=== PATIENT | female | born 1985 | race American Indian/Alaskan Native ===

== ENCOUNTER 2019-02-23 07:43 | Emergency (ER) | payer OTHER ==
[2019-02-23] MEDS ORDERED: DUONEB *Not for PRN Use IH ONE (08:15)
[2019-02-23] MEDS ORDERED: SOLU-Medrol IV ONE (08:16)
[2019-02-23] MEDS ORDERED: NACL 0.9% 1000 ML 1,000 ML IV ONE (08:16)
--- NOTE | 2019-02-23 08:17 | Emergency Department Report ---
Minor Respiratory - HPI Chief Complaint: Upper Respiratory Infection Stated Complaint: COLD/FLU SX Time Seen by Provider: 02/23/19 08:08 Duration: 5 Days Pain Location: Chest Severity: moderate Minor Respiratory: Yes Able to Tolerate Fluids, Yes Cough, Yes Shortness of Breath, No Rhinorrhea, No Sore Throat, No Ear Pain, No Sick Contacts, No Hemoptysis, No Chest Pain, No Fever Other History: Patient is a 33-year-old comes to emergency room complaining of exacerbation of her asthma. Patient is out of her asthma medicines. She denies fever. She is coughing. She was unable to continue with her primary care doctor. She denies taking any routine medications at this time. Denies chest pain. No increased work of breathing on exam. ABCs intact vital signs stable. Afebrile ED Review of Systems ROS: Stated complaint: COLD/FLU SX Other details as noted in HPI Comment: All other systems reviewed and negative ED Past Medical Hx - Past Medical History Hx Hypertension: No Hx CVA: No Hx Heart Attack/AMI: No Hx Congestive Heart Failure: No Hx Diabetes: No Hx Deep Vein Thrombosis: No Hx Pulmonary Embolism: No Hx GERD: No Hx Liver Disease: No Hx Renal Disease: No Hx Sickle Cell Disease: No Hx Arthritis: No Hx Headaches / Migraines: Yes Hx Seizures: No Hx Kidney Stones: No Hx Psychiatric Treatment: No Hx Asthma: Yes (Controlled with Albuterol PRN) Hx COPD: No Hx Tuberculosis: No Hx Dementia: No Hx HIV: No - Surgical History Past Surgical History?: No Hx Coronary Stent: No Hx Open Heart Surgery: No Hx Pacemaker: No Hx Internal Defibrillator: No Hx Cholecystectomy: No Hx Appendectomy: No Hx Breast Surgery: No - Social History Smoking Status: Never Smoker Substance Use Type: None - Medications Home Medications: Home Medications Medication Instructions Recorded Confirmed Last Taken Type Ipratropium [place] 0.2 mg IH TID PRN #1 box 10/31/14 Unknown Rx Albuterol Sulfate [Albuterol 0.63%] 3 ml IH TID PRN #1 box 02/23/19 Unknown Rx Albuterol Sulfate [Proair 90 mcg IH QID PRN #1 aer.pow.ba 02/23/19 Unknown Rx Respiclick] Azithromycin [Zithromax Z-PETRA] 250 mg PO DAILY #6 tablet 05/29/19 Unknown Rx Cetirizine HCl [ZyrTEC] 10 mg PO DAILY #30 capsule 02/23/19 Unknown Rx Fluticasone [Flonase] 1 spray NS QDAY #1 bottle 02/23/19 Unknown Rx predniSONE [Deltasone] 20 mg PO DAILY #5 tablet 02/23/19 Unknown Rx Minor Respiratory Exam - Exam General: Vital signs noted. No distress. Alert and acting appropriately. WDWN patient in NAD VS per RN flow sheet Alert and oriented to person, place and time. S1-S2. No S3 or S4. No systolic or diastolic murmur. No JVD. No pitting edema. bilateral wheezing and rhonchi on admit. Abdomen soft nontender bowel sounds -4. Moves all extremities well. Mood and affect appropriate. HEENT: Yes Pharyngeal Erythema Ear: Neither TM Bulge, Neither TM Erythema, Neither EAC Pain, Neither EAC Discharge Neck: Yes Supple, No Adenopathy Lungs: Yes Good Air Exchange, Yes Wheezes Heart: No Regular Abdomen: No Tenderness Skin: No Rash, No Edema Neurologic: Alert and oriented, no deficits. Musculoskeletal: Unremarkable. ED Course Vital Signs 02/23/19 07:45 Temperature 98.1 F Pulse Rate 77 Respiratory 18 Rate Blood Pressure 137/54 O2 Sat by Pulse 97 Oximetry ED Medical Decision Making - Radiology Data Radiology results: report reviewed, image reviewed - Medical Decision Making RT treatment and medicated in ER reports feeling better afterward. In fact, talking on phone during re exam xray no infiltrate no fever no sob no cp ambulatory without sob will dc home with dc plan of care and PCP follow up Vital Signs 02/23/19 02/23/19 02/23/19 07:45 08:30 09:00 Temperature 98.1 F 98.2 F Pulse Rate 77 79 Pulse Rate [ 88 Bilateral] Pulse Rate [ 88 Throughout] Respiratory 18 18 Rate Respiratory 16 Rate [Bilateral ] Respiratory 16 Rate [ Throughout] Blood Pressure 137/54 Blood Pressure 122/65 [Right] O2 Sat by Pulse 97 Oximetry - Differential Diagnosis ro pna Critical care attestation.: If time is entered above; I have spent that time in minutes in the direct care of this critically ill patient, excluding procedure time. ED Disposition Clinical Impression: Asthma exacerbation, Bronchitis Disposition: DC-01 TO HOME OR SELFCARE Is pt being admited?: No Does the pt Need Aspirin: No Condition: Stable Instructions: Asthma (ED), Chronic Bronchitis (ED) Additional Instructions: DIET TOLERATED MEDS ORDERED TODAY IN ER FOLLOW INSTRUCTIONS ON THE BOTTLE FOLLOW UP PCP WITHIN 48 HOURS TO ENSURE YOU ARE GETTING BETTER ACTIVITY TOLERATED MOTRIN OR TYLENOL FOR PAIN OR FEVER RETURN TO THE ER FOR WORSENING SYMPTOMS NOT RELIEVED BY YOUR MEDICATIONS. Prescriptions: Albuterol Sulfate [Albuterol 0.63%] 3 ml IH TID PRN #1 box PRN Reason: Wheezing predniSONE [Deltasone] 20 mg PO DAILY #5 tablet Fluticasone [Flonase] 1 spray NS QDAY #1 bottle Albuterol Sulfate [Proair Respiclick] 90 mcg IH QID PRN #1 aer.pow.ba PRN Reason: Wheezing Azithromycin [Zithromax Z-PETRA] 250 mg PO DAILY #6 tablet Cetirizine HCl [ZyrTEC] 10 mg PO DAILY #30 capsule Referrals: LAURIE LANE MD [Primary Care Provider] - 3-5 Days Time of Disposition: 09:36
--- NOTE | 2019-02-23 09:04 | XRay Report ---
ROUTINE CHEST, TWO VIEWS: HISTORY: Cough. The trachea, heart, mediastinal contour, lung trujillo and bony thorax are unremarkable. IMPRESSION: Unremarkable chest x-ray.
[2019-02-23 09:05] VITALS: BP 122/65
== END 2019-02-23 10:01 | disposition home or self-care (01) ==
LOC: ED 07:43
DX: J45.901 Unspecified asthma with (acute) exacerbation (principal); Z91.018 Allergy to other foods
CPT/HCPCS: 71046; 94640; 96361; 96374; 99283; J2930; J7030

== ENCOUNTER 2019-05-01 11:56 | Emergency (ER) | payer OTHER ==
--- NOTE | 2019-05-01 12:08 | Event Note ---
ED Screening Note Date of service: 05/01/19 Time: 12:06 ED Screening Note: This is a 34 y.o. F. that presents to the ER with urinary urgency, frequency, and dysuria x 1 week. Took AZO for 3 days improved dysuria. Reports pelvic pressure. PMH Asthma LMP 04/11/2019, G0 This initial assessment/diagnostic orders/clinical plan/treatment(s) is/are subject to change based on patients health status, clinical progression and re- assessment by fellow clinical providers in the ED. Further treatment and workup at subsequent clinical providers discretion. Patient/guardian urged not to elope from the ED as their condition may be serious if not clinically assessed and managed. Initial orders include: UA, urine
[2019-05-01 12:10] VITALS: BP 146/72
[2019-05-01 13:18] LABS: Bilirubin,Urine NEG (Negative); Blood,Urine SM (Negative); Color,Urine Yellow (Yellow); Mucus,Urine FEW /HPF; Protein,Urine <15 mg/dL mg/dL (Negative); Urobilinogen,Urine < 2.0 mg/dL (<2.0)
[2019-05-01 13:20] LABS: WBC,Urine > 182.0 /HPF (0.0-6.0)
[2019-05-01 13:21] LABS: HCG Qualitative,Urine Negative (Negative)
[2019-05-01] MEDS ORDERED: ROCEPHIN IM ONE (13:57)
[2019-05-01] MEDS ORDERED: XYLOCAINE 1% MPF 5 mL INFILTRATI ONE (13:57)
--- NOTE | 2019-05-01 14:08 | Emergency Department Report ---
ED Female HPI - General Chief complaint: Abdominal Pain Stated complaint: LOWER ABD PAIN/POSS UTI Time Seen by Provider: 05/01/19 12:05 Source: patient Mode of arrival: Ambulatory Limitations: No Limitations - History of Present Illness Initial comments: This is a 34-year-old female nontoxic, well nourished in appearance, no acute signs of distress presents to the ED with c/o of dysuria, polyuria, and urinary frequency. Patient denies any vaginal discharge, bleeding, ulcers or lesions. Patient denies any back pain. Patient denies any pelvic or abdominal pain. Patient denies any nausea, vomiting, chest pain, shortness of breathe, fever, chills, headache, back pain, numbness, tingling, stiff neck. Patient denies any urinary symptoms. Patient denies any allergies or PMH. MD Complaint: dysuria Severity: mild Severity scale (0 -10): 3 Quality: burning Consistency: intermittent Improves with: none Worsens with: urination Are you Now?: No Associated Symptoms: dysuria. denies: vaginal discharge, vaginal bleeding, abdominal pain, nausea/vomiting, fever/chills, headaches, loss of appetite, hematuria, rash, seizure, shortness of breath, syncope, weakness - Related Data Previous Rx's Medication Instructions Recorded Last Taken Type Ipratropium [place] 0.2 mg IH TID PRN #1 box 10/31/14 Unknown Rx Albuterol Sulfate [Albuterol 0.63%] 3 ml IH TID PRN #1 box 02/23/19 Unknown Rx Albuterol Sulfate [Proair 90 mcg IH QID PRN #1 aer.pow.ba 02/23/19 Unknown Rx Respiclick] Azithromycin [Zithromax Z-PETRA] 250 mg PO DAILY #6 tablet 02/23/19 Unknown Rx Cetirizine HCl [ZyrTEC] 10 mg PO DAILY #30 capsule 02/23/19 Unknown Rx Fluticasone [Flonase] 1 spray NS QDAY #1 bottle 02/23/19 Unknown Rx predniSONE [Deltasone] 20 mg PO DAILY #5 tablet 02/23/19 Unknown Rx Sulfamethoxazole/Trimethoprim 1 each PO BID #14 tablet 05/01/19 Unknown Rx [Bactrim DS TAB] Allergies Allergy/AdvReac Type Severity Reaction Status Date / Time pine nut AdvReac Unknown Verified 02/23/19 07:45 ED Review of Systems ROS: Stated complaint: LOWER ABD PAIN/POSS UTI Other details as noted in HPI Constitutional: denies: chills, fever Eyes: denies: eye pain, eye discharge, vision change ENT: denies: ear pain, throat pain Respiratory: denies: cough, shortness of breath, wheezing Cardiovascular: denies: chest pain, palpitations Endocrine: no symptoms reported Gastrointestinal: denies: abdominal pain, nausea, diarrhea Genitourinary: urgency, dysuria, frequency. denies: hematuria, discharge Musculoskeletal: denies: back pain, joint swelling, arthralgia Skin: denies: rash, lesions Neurological: denies: headache, weakness, paresthesias Psychiatric: denies: anxiety, depression Hematological/Lymphatic: denies: easy bleeding, easy bruising ED Past Medical Hx - Past Medical History Hx Hypertension: No Hx CVA: No Hx Heart Attack/AMI: No Hx Congestive Heart Failure: No Hx Diabetes: No Hx Deep Vein Thrombosis: No Hx Pulmonary Embolism: No Hx GERD: No Hx Liver Disease: No Hx Renal Disease: No Hx Sickle Cell Disease: No Hx Arthritis: No Hx Headaches / Migraines: Yes Hx Seizures: No Hx Kidney Stones: No Hx Psychiatric Treatment: No Hx Asthma: Yes (Controlled with Albuterol PRN) Hx COPD: No Hx Tuberculosis: No Hx Dementia: No Hx HIV: No - Surgical History Hx Coronary Stent: No Hx Open Heart Surgery: No Hx Pacemaker: No Hx Internal Defibrillator: No Hx Cholecystectomy: No Hx Appendectomy: No Hx Breast Surgery: No - Social History Smoking Status: Never Smoker Substance Use Type: None - Medications Home Medications: Home Medications Medication Instructions Recorded Confirmed Last Taken Type Ipratropium [place] 0.2 mg IH TID PRN #1 box 10/31/14 Unknown Rx Albuterol Sulfate [Albuterol 0.63%] 3 ml IH TID PRN #1 box 02/23/19 Unknown Rx Albuterol Sulfate [Proair 90 mcg IH QID PRN #1 aer.pow.ba 02/23/19 Unknown Rx Respiclick] Azithromycin [Zithromax Z-PETRA] 250 mg PO DAILY #6 tablet 02/23/19 Unknown Rx Cetirizine HCl [ZyrTEC] 10 mg PO DAILY #30 capsule 02/23/19 Unknown Rx Fluticasone [Flonase] 1 spray NS QDAY #1 bottle 02/23/19 Unknown Rx predniSONE [Deltasone] 20 mg PO DAILY #5 tablet 02/23/19 Unknown Rx Sulfamethoxazole/Trimethoprim 1 each PO BID #14 tablet 05/01/19 Unknown Rx [Bactrim DS TAB] ED Physical Exam - General Limitations: No Limitations General appearance: alert, in no apparent distress - Head Head exam: Present: atraumatic, normocephalic - Neck Neck exam: Present: normal inspection, full ROM. Absent: tenderness, meningismus, lymphadenopathy - GI/Abdominal GI/Abdominal exam: Present: soft, normal bowel sounds. Absent: distended, tenderness, guarding, rebound, rigid, diminished bowel sounds - Extremities Exam Extremities exam: Present: normal inspection, full ROM - Back Exam Back exam: Present: normal inspection, full ROM. Absent: tenderness, CVA tenderness (R), CVA tenderness (L), muscle spasm, paraspinal tenderness, vertebral tenderness, rash noted - Neurological Exam Neurological exam: Present: alert, oriented X3, normal gait - Psychiatric Psychiatric exam: Present: normal affect, normal mood - Skin Skin exam: Present: warm, dry, intact, normal color. Absent: rash ED Course Vital Signs 05/01/19 12:07 Temperature 97.9 F Pulse Rate 78 Respiratory 18 Rate Blood Pressure 146/72 O2 Sat by Pulse 100 Oximetry - Reevaluation(s) Reevaluation #1: 05/01/19 14:07 Patient is speaking in full sentences with no signs of distress noted. ED Medical Decision Making - Medical Decision Making This is a 34-year-old female that presents with UTI. Patient is stable and was examined by me. UA obtained. Patient does not have any CVA tenderness. No signs or symptoms of pyelonephritis. Patient received Rocephin 1G in the ED. Patient is discharged with Bactrim. Patient was instructed to Follow-up with a primary care doctor in 3-5 days or if symptoms worsen and continue return to emergency room as soon as possible. At time of discharge, the patient does not seem toxic or ill in appearance. No acute signs of distress noted. Patient a grees to discharge treatment plan of care. No further questions noted by the patient. Critical care attestation.: If time is entered above; I have spent that time in minutes in the direct care of this critically ill patient, excluding procedure time. ED Disposition Clinical Impression: UTI (urinary tract infection) Qualifiers: Urinary tract infection type: acute cystitis Hematuria presence: with hematuria Qualified Code(s): N30.01 - Acute cystitis with hematuria Disposition: TO HOME OR SELFCARE Is pt being admited?: No Does the pt Need Aspirin: No Condition: Stable Instructions: Urinary Tract Infection in Women (ED) Additional Instructions: Follow-up with a primary care doctor in 3-5 days or if symptoms worsen and continue return to emergency room as soon as possible. Prescriptions: Sulfamethoxazole/Trimethoprim [Bactrim DS TAB] 1 each PO BID #14 tablet Referrals: PRIMARY CAREMD [Referring] - 3-5 Days ERASMO JOSEPH MD [Staff Physician] - 3-5 Days [facility] [Outside] - 3-5 Days Forms: Work/School Release Form(ED)
== END 2019-05-01 15:05 | disposition home or self-care (01) ==
LOC: ED 11:56
DX: N39.0 Urinary tract infection, site not specified (principal); G43.909 Migraine, unspecified, not intractable, without status migrainosus; J45.901 Unspecified asthma with (acute) exacerbation; Z79.899 Other long term (current) drug therapy; Z91.018 Allergy to other foods
CPT/HCPCS: 81001; 81025; 96372; 99283; J0696

== ENCOUNTER 2022-06-01 21:49 | Emergency (ER) | payer SELFPAY ==
[2022-06-01 22:30] VITALS: BP 136/67
[2022-06-01] MEDS ORDERED: predniSONE 20 MG TAB PO ONE (22:38)
[2022-06-01] MEDS ORDERED: IPRATROPIUM 0.02% NEBU 2.5 ML IH ONE (22:38)
[2022-06-01] MEDS ORDERED: IPRATROPIUM/ALBUTEROL SULFATE 3 ML AMPUL.NEB IH ONE (22:38)
[2022-06-01] MEDS ORDERED: ALBUTEROL 2.5 MG/3 ML NEBU IH ONE (22:38)
--- NOTE | 2022-06-01 22:40 | Event Note ---
Date: 06/01/22 Medical screening examination note: 37-year-old female with body mass index of 44, presenting with wheezing and shortness of breath. She appears to be mildly anxious and distressed. Placed patient on quality assurance monitor body and pulse oximeter. Ordered albuterol, Atrovent and steroids. Patient is awake and alert, not encephalopathic, protecting airway, and hemodynamically stable. Detailed history and physical to be performed by oncoming provider. Vital Signs 06/01/22 22:27 Temperature 98.3 F Pulse Rate 103 H Respiratory 22 Rate Blood Pressure 136/67 O2 Sat by Pulse 98 Oximetry
--- NOTE | 2022-06-01 23:11 | Emergency Department Report ---
ED Asthma HPI - General Chief Complaint: Adult Asthma Stated Complaint: ASTHMA,KULWINDER Time Seen by Provider: 06/01/22 22:37 Source: patient Mode of arrival: Ambulatory Limitations: No Limitations - History of Present Illness Initial Comments: Patient is a 37-year-old female with history of asthma who presents stating that she has had cold symptoms for the last 2 days which she believes she got from her niece who tested negative for COVID. She states she has had cough and rhinorrhea and then today her inhalers and nebulizers were not as helpful as they usually are. Last nebulizer treatment was at 830 and she does not feel it did much for her. Last steroid use was about a year ago. She has been hospitalized as an adult with her asthma complicated by pneumonia over 5 years ago but has never been intubated. She denies fevers chills nausea myalgias or fatigue. No loss of taste smell or appetite. MD Complaint: "asthma attack" Onset/Timin -: Gradual, days(s) Asthma History: childhood onset, history of prior ED visit (Several years ago was her last time) Severity: moderate Context: recent URI Associated Symptoms: dry cough. denies: fever, chest pain, hemoptysis, leg edema, syncope - Related Data Current Asthma Therapy: inhaled bronchodilator Previous Rx's Medication Instructions Recorded Last Taken Type Ipratropium [place] 0.2 mg IH TID PRN #1 box 10/31/14 Unknown Rx Albuterol Sulfate [Proair 90 mcg IH QID PRN #1 aer.pow.ba 02/23/19 Unknown Rx Respiclick] Cetirizine HCl [ZyrTEC 10mg cap] 10 mg PO DAILY #30 capsule 02/23/19 Unknown Rx Fluticasone [Flonase] 1 spray NS QDAY #1 bottle 02/23/19 Unknown Rx ALBUTEROL NEB's [Proventil 0.083% 2.5 mg IH Q4HR PRN #25 vial 06/02/22 Unknown Rx NEBS] Benzonatate [Tessalon Perles] 100 mg PO HS PRN #20 cap 06/02/22 Unknown Rx methylPREDNISolone [Medrol 4MG 4 mg PO DAILY #1 pack 06/02/22 Unknown Rx DOSEPAK (21 tabs)] Allergies Allergy/AdvReac Type Severity Reaction Status Date / Time pine nut AdvReac Unknown Verified 02/23/19 07:45 ED Review of Systems ROS: Stated complaint: ASTHMA,KULWINDER Other details as noted in HPI Comment: All other systems reviewed and negative Constitutional: denies: chills, fever Eyes: denies: eye discharge, vision change ENT: congestion. denies: throat pain Respiratory: cough, shortness of breath, wheezing Cardiovascular: denies: chest pain, palpitations, edema, paroxysmal nocturnal dyspnea Endocrine: denies: intolerance to cold, intolerance to heat Gastrointestinal: denies: abdominal pain, nausea, vomiting, diarrhea Genitourinary: denies: urgency, dysuria, frequency Skin: denies: rash Neurological: denies: headache, weakness Psychiatric: denies: anxiety, depression Hematological/Lymphatic: denies: easy bleeding, easy bruising ED Past Medical Hx - Past Medical History Previous Medical History?: Yes Hx Hypertension: No Hx CVA: No Hx Heart Attack/AMI: No Hx Congestive Heart Failure: No Hx Diabetes: No Hx Deep Vein Thrombosis: No Hx Pulmonary Embolism: No Hx GERD: No Hx Liver Disease: No Hx Renal Disease: No Hx Sickle Cell Disease: No Hx Arthritis: No Hx Headaches / Migraines: Yes Hx Seizures: No Hx Kidney Stones: No Hx Psychiatric Treatment: No Hx Asthma: Yes (Controlled with Albuterol PRN) Hx COPD: No Hx Tuberculosis: No Hx Dementia: No Hx HIV: No - Surgical History Past Surgical History?: No Hx Coronary Stent: No Hx Open Heart Surgery: No Hx Pacemaker: No Hx Internal Defibrillator: No Hx Cholecystectomy: No Hx Appendectomy: No Hx Breast Surgery: No - Family History Family history: asthma - Social History Smoking Status: Never Smoker Substance Use Type: None - Medications Home Medications: Home Medications Medication Instructions Recorded Confirmed Last Taken Type Ipratropium [place] 0.2 mg IH TID PRN #1 box 10/31/14 Unknown Rx Albuterol Sulfate [Proair 90 mcg IH QID PRN #1 aer.pow.ba 02/23/19 Unknown Rx Respiclick] Cetirizine HCl [ZyrTEC 10mg cap] 10 mg PO DAILY #30 capsule 02/23/19 Unknown Rx Fluticasone [Flonase] 1 spray NS QDAY #1 bottle 02/23/19 Unknown Rx ALBUTEROL NEB's [Proventil 0.083% 2.5 mg IH Q4HR PRN #25 vial 06/02/22 Unknown Rx NEBS] Benzonatate [Tessalon Perles] 100 mg PO HS PRN #20 cap 06/02/22 Unknown Rx methylPREDNISolone [Medrol 4MG 4 mg PO DAILY #1 pack 06/02/22 Unknown Rx DOSEPAK (21 tabs)] ED Physical Exam - General Limitations: No Limitations General appearance: alert, in distress (Mild/anxious) - Head Head exam: Present: atraumatic, normocephalic - Eye Eye exam: Present: PERRL. Absent: scleral icterus, conjunctival injection - ENT ENT exam: Present: mucous membranes moist - Neck Neck exam: Present: normal inspection, full ROM - Respiratory Respiratory exam: Present: respiratory distress (Mild), wheezes (Moderate). Absent: rales, rhonchi, stridor - Cardiovascular Cardiovascular Exam: Present: regular rate, normal rhythm, normal heart sounds - GI/Abdominal GI/Abdominal exam: Present: soft. Absent: distended, tenderness - Extremities Exam Extremities exam: Present: normal capillary refill - Neurological Exam Neurological exam: Present: alert, oriented X3 - Psychiatric Psychiatric exam: Present: anxious - Skin Skin exam: Present: warm, dry, intact, normal color. Absent: cyanosis, petechiae, pallor ED Course Vital Signs 06/01/22 06/01/22 22:27 23:35 Temperature 98.3 F Pulse Rate 103 H Pulse Rate [ 112 H Bilateral Throughout] Respiratory 22 Rate Respiratory 20 Rate [Bilateral Throughout] Blood Pressure 136/67 O2 Sat by Pulse 98 Oximetry - Reevaluation(s) Reevaluation #1: 06/02/22 01:49 Patient became quite jittery from the nebulizer and still had some expiratory wheezing so chest x-ray ordered. Pulse oximetry was 100%. Chest x-ray came reynaldo k negative reevaluation afterwards, wheezing cleared pulse oximetry 98%. Heart rate 111. So repeat nebulizer not necessary.. 06/02/22 02:07 ED Medical Decision Making - Radiology Data Radiology results: report reviewed, image reviewed [address] [place] [address] XRay Report Signed Patient: INGE MENSAH MR# : [id number] : 1985 Acct:[id number] Age/Sex: 37 / F ADM Date: 06/01/22 Loc: ED Attending Dr: Ordering Physician: JOCELYNN CONNELLY Date of Service: 06/02/22 Procedure(s): XR chest routine 2V Accession Number(s): [id number] cc: JOCELYNN CONNELLY Fluoro Time In Minutes: CHEST 2 VIEWS INDICATION / CLINICAL INFORMATION: Cough, wheezing, history of pneumonia. COMPARISON: 2 views of the chest from 02/23/2019. FINDINGS: SUPPORT DEVICES: None. HEART / MEDIASTINUM: No significant abnormality. LUNGS / PLEURA: No significant pulmonary abnormality. No significant pleural effusion. No pneumothorax. ADDITIONAL FINDINGS: No significant additional findings. IMPRESSION: 1. No acute abnormality of the chest. Signer Name: Jaron Paz MD Signed: 06/02/2022 1:30 AM Workstation Name: [id number] Transcribed By: THERESE Dictated By: Jaron Paz MD Electronically Authenticated By: Jaron Paz MD Signed Date/Time: 06/02/22129 DD/ 9 TD/TT: Print Cancel - Medical Decision Making atient became quite jittery from the nebulizer and still had some expiratory wheezing so chest x-ray ordered. Pulse oximetry was 100%. Chest x-ray came back negative reevaluation afterwards, wheezing cleared pulse oximetry 98%. Heart rate 111. So repeat nebulizer not necessary.. Recommend COVID test when she gets home. Guaifenesin 1200 mg extended release twice daily. Warm compresses to the sinuses. Warm salt water gargles. Normal saline. Fluids. Nebulizer or inhaler. Medrol Dosepak. Follow-up with primary care doctor. Critical care attestation.: If time is entered above; I have spent that time in minutes in the direct care of this critically ill patient, excluding procedure time. ED Disposition Clinical Impression: Acute asthma, URI (upper respiratory infection), Suspected COVID-19 virus infection Disposition: 01 HOME / SELF CARE / HOMELESS Is pt being admited?: No Condition: Stable Instructions: Asthma (ED), Asthma, Adult, Viral Respiratory Infection, [id number], COVID-19 Additional Instructions: Recommend COVID test when she gets home. Guaifenesin 1200 mg extended release twice daily. Warm compresses to the sinuses. Warm salt water gargles. Normal saline. Fluids. Nebulizer or inhaler. Medrol Dosepak. Follow-up with primary care doctor. Prescriptions: methylPREDNISolone [Medrol 4MG DOSEPAK (21 tabs)] 4 mg PO DAILY #1 pack ALBUTEROL NEB's [Proventil 0.083% NEBS] 2.5 mg IH Q4HR PRN #25 vial PRN Reason: Wheezing Benzonatate [Tessalon Perles] 100 mg PO HS PRN #20 cap PRN Reason: Cough Forms: Work/School Release Form(ED) Time of Disposition: 02:16
--- NOTE | 2022-06-02 01:35 | XRay Report ---
CHEST 2 VIEWS INDICATION / CLINICAL INFORMATION: Cough, wheezing, history of pneumonia. COMPARISON: 2 views of the chest from 02/23/2019. FINDINGS: SUPPORT DEVICES: None. HEART / MEDIASTINUM: No significant abnormality. LUNGS / PLEURA: No significant pulmonary abnormality. No significant pleural effusion. No pneumothora x. ADDITIONAL FINDINGS: No significant additional findings. IMPRESSION: 1. No acute abnormality of the chest. Signer Name: Jaron Paz MD Signed: 06/02/2022 1:30 AM Workstation Name: [id number]
== END 2022-06-02 03:32 | disposition home or self-care (01) ==
LOC: ED 21:49
DX: J45.909 Unspecified asthma, uncomplicated (principal); J06.9 Acute upper respiratory infection, unspecified; Z20.822 Contact with and (suspected) exposure to COVID-19; G43.909 Migraine, unspecified, not intractable, without status migrainosus; Z91.010 Allergy to peanuts
CPT/HCPCS: 71046; 94640; 94644; 99282; 99283